=== PATIENT | male | born 1955 | race Caucasian/White ===

== ENCOUNTER → 2017-10-19 | Outpatient (CLI) | payer OTHER ==
[~2017-10-19] MED LIST: ATOR40TA PO; CLON1 PO; CRUTCH2 USE; CYCL10 PO; Crestor20 MG PO; DIPH50; Dulcolax5 MG PO; ESCI20; HYDACE5 PO; HYDPAM25 PO; IBUP600; IBUP800 PO; LISI20 PO; LOSA25 PO; METPRE4DP PO; MULVITMIND PO; MULVITMINF; Naprosyn500 MG PO; OXYACE5T PO; PAXIL; Percocet 5-3251 EACH PO; RANI150 PO; TRAM50 PO; [UNRECOGNIZED DRUG - REMARK]; [UNRECOGNIZED DRUG - REMARK]
[2017-10-23 11:25] LABS: MDA Not Detected (NOTDET); MDEA Not Detected (NOTDET); MDMA Not Detected (NOTDET)
== END | disposition home or self-care (01) ==
LOC: LAB SRC 13:15
PROVIDERS: Physician Assistant
DX: M54.5 Low back pain (principal)
CPT/HCPCS: G0480

== ENCOUNTER → 2018-01-11 | Outpatient (CLI) | payer OTHER | END | disposition home or self-care (01) | LOC: LAB 18:11 → LAB SHORT 18:11 | DX: F41.8 Other specified anxiety disorders (principal) | CPT/HCPCS: G0480 ==

== ENCOUNTER 2018-02-18 03:02 | Emergency (ER) | payer OTHER ==
[~2018-02-18] VITALS: Ht 182.9 cm; Wt 90.7 kg
[2018-02-18] MEDS ORDERED: IBUP800 PO (04:26)
== END 2018-02-18 04:45 | disposition home or self-care (01) ==
LOC: ER 03:02
DX: S82.434A Nondisplaced oblique fracture of shaft of right fibula, initial encounter for closed fracture (principal); M25.461 Effusion, right knee; I10 Essential (primary) hypertension; F41.9 Anxiety disorder, unspecified; K21.9 Gastro-esophageal reflux disease without esophagitis; Z87.891 Personal history of nicotine dependence; Z79.899 Other long term (current) drug therapy; X50.1XXA Overexertion from prolonged static or awkward postures, initial encounter
CPT/HCPCS: 73562-RT